=== PATIENT | male | born 1955 | race Caucasian/White ===

== ENCOUNTER 2018-03-01 20:35 | Inpatient (IN) | payer OTHER ==
[~2018-03-01] VITALS: Ht 193 cm; Wt 113.4 kg
[~2018-03-01 20:35] MED LIST: ALLOPURINOL100 MG PO; ATENOLOL25 MG PO; HYDROCHLOROTHIA25 MG PO; LISINOPRIL10 MG PO
[2018-03-01] MEDS ORDERED: MORPHINE SULFATE INJ 4 MG/ML INJ IV STA (20:43)
[2018-03-01] MEDS ORDERED: ONDANSETRON HCL INJ 2 MG/ML VIAL IV STA (20:43)
[2018-03-01] MEDS ORDERED: SODIUM CHLORIDE 0.9% 1000ML 1,000 ML IV STA (20:43)
[2018-03-01] MEDS ORDERED: MORPHINE SULFATE 2 MG/ML SYR ONE (20:49)
[2018-03-01] MEDS ORDERED: KETOROLAC TROMETHAMINE 30 MG/ML VIAL IV STA (21:01)
[2018-03-01] MEDS ORDERED: ZOLPIDEM TARTRAT5 MG PO (21:02)
[2018-03-01] MEDS ORDERED: METFORMIN HCL500 MG PO (21:02)
[2018-03-01] MEDS ORDERED: LISINOPRIL10 MG PO (21:02)
[2018-03-01 21:09] LABS: BASOPHILS # (AUTO) 0.1 (0.0-0.1); BASOPHILS % 0.5 % (0.0-1.0); EOSINOPHILS % 0.1 % (0.0-6.0); HEMATOCRIT 47.3 % (38.2-49.6); HEMOGLOBIN 16.1 g/dL (14.0-18.0); LYMPHOCYTES # (AUTO) 2.3 (1.0-3.2); MEAN CORPUSCULAR HEMOGLOBIN 31.3 pg (28-32); MEAN CORPUSCULAR VOLUME 91.8 fL (81-99); MONOCYTES # (AUTO) 1.2 (0.2-0.8); MONOCYTES % 9.5 % (4.4-11.3); NEUTROPHILS # (AUTO) 8.6 (2.1-6.9); NEUTROPHILS % 70.4 % (38.7-80.0); PLATELET COUNT 213 x10e3/uL (140-360); RED BLOOD COUNT 5.15 x10e6/uL (4.3-5.7); RED CELL DISTRIBUTION WIDTH 12.3 % (11.7-14.4)
[2018-03-01 21:23] LABS: BACTERIA,URINE RARE /HPF; BILIRUBIN,URINE NEGATIVE (NEGATIVE); CLARITY,URINE CLEAR (CLEAR); COLOR,URINE YELLOW (YELLOW); EPITHELIAL CELLS,URINE RARE /LPF; KETONES,URINE NEGATIVE (NEGATIVE); LEUKOCYTE ESTERASE ,URINE NEGATIVE (NEGATIVE); NITRITE,URINE NEGATIVE (NEGATIVE); PROTEIN,URINE DIPSTICK NEGATIVE (NEGATIVE); URINE UROBILINOGEN 0.2 mg/dL (0.2 - 1)
[2018-03-01 21:36] LABS: ALBUMIN 4.6 g/dL (3.5-5.0); ALBUMIN/GLOBULIN RATIO 1.5 (0.8-2.0); ANION GAP 16.7 mmol/L (8-16); CREATININE, SERUM 1.96 mg/dL (0.72-1.25); POTASSIUM 3.7 mmol/L (3.5-5.1)
--- NOTE | 2018-03-01 21:52 | Diagnostic Imaging Report ---
EXAM: CT ABDOMEN/PELVIS WO DATE: 03/01/2018 8:43 PM INDICATION: Stone protocol, pain COMPARISON: 03/06/2013 TECHNIQUE: The abdomen and pelvis were scanned using a multidetector helical scanner. Coronal and sagittal reformations were obtained. Routine protocol performed. IV Contrast: 0 ml Isovue 300/370 FINDINGS: Lack of IV contrast decreases sensitivity in evaluating abdominal and pelvic organs. LOWER THORAX: Left basilar atelectasis LIVER/BILIARY: Hepatic steatosis. Otherwise unremarkable noncontrast appearance. GALLBLADDER: Unremarkable SPLEEN: No splenomegaly. Calcified granulomas. PANCREAS: Unremarkable ADRENALS: No nodules KIDNEYS: There are several benign-appearing right renal cystic lesions, the largest inferiorly 3.2 cm. Multiple bilateral renal calculi. The largest on the right measures 3 and 5 mm of the right upper pole and 4 and 6 mm of the lower pole. The largest on the left measure 3 to 4 mm of the upper pole and 6-9 mm of the interpolar/lower pole regions. Mild left hydroureteronephrosis related to two mid ureteral calculi measuring 5 and 7 mm. GI TRACT: No wall thickening or evidence of obstruction. VESSELS: Moderate atherosclerotic calcifications. PERITONEUM/RETROPERITONEUM: No free air or fluid LYMPH NODES: No lymphadenopathy REPRODUCTIVE ORGANS/BLADDER: Unremarkable SOFT TISSUES: Small fat-containing left inguinal hernia. BONES: Multilevel degenerative changes are noted, worse at L5-S1. IMPRESSION: Mild left hydroureteronephrosis related to mid ureteral calculi measuring 5 and 7 mm. Nonobstructing bilateral nephrolithiasis. Signed by: Dr Casandra Boateng MD on 03/01/2018 9:48 PM
[2018-03-01] MEDS ORDERED: MEROPENEM 1GRAM 1 GM in SODIUM CHLORIDE 0.9% 100 ML 100 ML IV SCH (22:30)
[2018-03-01] MEDS ORDERED: ONDANSETRON HCL INJ 2 MG/ML VIAL IV PRN (22:45)
[2018-03-02] VITALS (9 sets, daily range): BP systolic 130–151; BP diastolic 60–72
[2018-03-02 00:36] LABS: CREATINE KINASE 186 IU/L (30-200)
[2018-03-02] MEDS: SODIUM CHLORIDE 0.9% 1000ML 1,000 ML IV SCH ×4 (02:35→23:42)
[2018-03-02] MEDS: HYDROMORPHONE 1MG/1ML INJ IV PRN (05:47)
[2018-03-02] MEDS ORDERED: MEROPENEM 1 GM VIAL ONE (07:07)
[2018-03-02 09:32] LABS: BASOPHILS % 0.4 % (0.0-1.0); HEMATOCRIT 41.1 % (38.2-49.6); HEMOGLOBIN 14.9 g/dL (14.0-18.0); LYMPHOCYTES # (AUTO) 1.3 (1.0-3.2); LYMPHOCYTES % 16.4 % (18.0-39.1); MEAN CORPUSCULAR HEMOGLOBIN 31.8 pg (28-32); MEAN CORPUSCULAR HGB CONC 36.3 g/dL (31-35); MEAN CORPUSCULAR VOLUME 87.8 fL (81-99); MONOCYTES # (AUTO) 0.9 (0.2-0.8); NEUTROPHILS # (AUTO) 5.6 (2.1-6.9); NEUTROPHILS % 71.8 % (38.7-80.0); PLATELET COUNT 159 x10e3/uL (140-360); RED BLOOD COUNT 4.68 x10e6/uL (4.3-5.7)
[2018-03-02 09:58] LABS: ALBUMIN 3.8 g/dL (3.5-5.0); ALBUMIN/GLOBULIN RATIO 1.5 (0.8-2.0); CALCIUM 8.8 mg/dL (8.4-10.2); CREATININE, SERUM 2.13 mg/dL (0.72-1.25)
[2018-03-02 10:28] LABS: CREATINE KINASE MB 2.9 ng/mL (0-5.0)
[2018-03-02] MEDS: MEROPENEM 1GM 100 ML IV SCH ×2 (11:00→23:10)
[2018-03-02] MEDS ORDERED: DEXTROSE 50% SYRINGE 50 ML IV PRN ×2 (11:15)
[2018-03-02] MEDS: ATENOLOL 50 MG TAB PO SCH (12:15)
[2018-03-02] MEDS: LISINOPRIL 10 MG TAB PO SCH (12:15)
[2018-03-02] MEDS: ALLOPURINOL 300 MG TAB PO SCH (12:15)
[2018-03-02] MEDS: INSULIN REGULAR, HUMAN 100 UNIT/1 ML 3ML VIAL SQ SCH ×2 (16:30→19:53)
--- NOTE | 2018-03-02 18:18 | History and Physical ---
HISTORY OF PRESENT ILLNESS: A 62-year-old male with past medical history positive for hypertension, diet-controlled diabetes, history of recurrent kidney stones who came back in with left flank pain. He was found to have a kidney stone with left hydronephrosis. REVIEW OF SYSTEMS: CARDIOVASCULAR: No chest pain or palpitation. RESPIRATORY: No shortness of breath. No cough. GASTROINTESTINAL: No nausea. No vomiting or diarrhea. GENITOURINARY: He has left flank pain. SOCIAL HISTORY: He does not smoke and does not drink. PAST MEDICAL HISTORY: Positive for hypertension and diet-controlled diabetes and recurrent kidney stones. PHYSICAL EXAMINATION VITAL SIGNS: Blood pressure 147/72, temperature 98.6, heart rate 66 per minute, respiratory rate 18 per minute. Oxygen saturation 95%. On the BMP sodium 139, potassium 4.0, chloride 106. CO2 24. BUN 33. Creatinine 2.13. Glucose 110. On the CBC white blood count 7.73, hemoglobin 14.9, hematocrit 41.1, platelet count 159,000. AST 16, ALT 20. Total bilirubin 2.1, alkaline phosphatase 54. PHYSICAL EXAMINATION: ABDOMEN: Showed evidence of left kidney stone with hydronephrosis. UA urine culture has been sent. CT of the abdomen showed evidence of left kidney stone with hydronephrosis. Urine culture has been sent. FINAL IMPRESSION 1. Left kidney stone with hydronephrosis. 2. Uncontrolled hypertension. 3. Diet-controlled diabetes mellitus type 2. PLAN OF TREATMENT: Continue IV fluids at 100 normal saline 150 mL an hour. Dilaudid 1 mg IV q.4 h. as needed. Meropenem 500 mg IV twice a day. Zofran 4 mg IV q.4 h. Lisinopril 20 mg daily. Atenolol 50 mg daily. Allopurinol 300 mg daily. Ambien 5 mg at night p.r.n. for sleep, hydrochlorothiazide is going to be discontinued because of renal failure and we are going to discontinue the metformin. Going to order a BMP and CBC tomorrow. Dr. Washburn, urology, has been seeing the patient and he is going to do a cystoscopy and retrograde tomorrow. Time Spent: About 45 minutes with the patient. Job#: [id number]
[2018-03-02] MEDS ORDERED: METFORMIN HCL 500 MG TAB PO SCH (21:00)
[2018-03-02] MEDS: ZOLPIDEM TARTRATE 5 MG TAB PO SCH (23:42)
[2018-03-03] VITALS (7 sets, daily range): BP systolic 131–161; BP diastolic 63–78
[2018-03-03] MEDS: SODIUM CHLORIDE 0.9% 1000ML 1,000 ML IV SCH ×3 (06:00→23:50)
[2018-03-03 07:02] LABS: BASOPHILS # (AUTO) 0.1 (0.0-0.1); BASOPHILS % 0.8 % (0.0-1.0); HEMATOCRIT 37.4 % (38.2-49.6); HEMOGLOBIN 13.3 g/dL (14.0-18.0); LYMPHOCYTES # (AUTO) 1.6 (1.0-3.2); LYMPHOCYTES % 24.8 % (18.0-39.1); MEAN CORPUSCULAR HEMOGLOBIN 31.3 pg (28-32); MEAN CORPUSCULAR HGB CONC 35.6 g/dL (31-35); MONOCYTES # (AUTO) 0.8 (0.2-0.8); MONOCYTES % 11.6 % (4.4-11.3); NEUTROPHILS # (AUTO) 4.1 (2.1-6.9); NEUTROPHILS % 62.6 % (38.7-80.0); PLATELET COUNT 134 x10e3/uL (140-360); RED BLOOD COUNT 4.25 x10e6/uL (4.3-5.7)
[2018-03-03 07:25] LABS: ALANINE AMINOTRANSFERASE 16 IU/L (0-55); ALBUMIN 3.3 g/dL (3.5-5.0); ALBUMIN/GLOBULIN RATIO 1.4 (0.8-2.0); ALKALINE PHOSPHATASE 45 IU/L (40-150); ANION GAP 11.1 mmol/L (8-16); BLOOD UREA NITROGEN 23 mg/dL (7-26); BUN/CREATININE RATIO 22 (6-25); CALCIUM 8.6 mg/dL (8.4-10.2); CARBON DIOXIDE 24 mmol/L (22-29); CHLORIDE 109 mmol/L (98-107); CREATININE, SERUM 1.06 mg/dL (0.72-1.25); EST GLOMERULAR FILTRATION RATE > 60 ML/MIN (60-); GLUCOSE 115 mg/dL (74-118); POTASSIUM 4.1 mmol/L (3.5-5.1); SODIUM 140 mmol/L (136-145)
[2018-03-03] MEDS: INSULIN REGULAR, HUMAN 100 UNIT/1 ML 3ML VIAL SQ SCH ×5 (07:30→20:26)
[2018-03-03] MEDS ORDERED: HYDROCHLOROTHIAZIDE 25 MG TAB PO SCH (09:00)
[2018-03-03] MEDS ORDERED: IOPAMIDOL 610MG/1ML 300 MG/ML VIAL IV ONE (09:09)
[2018-03-03] MEDS ORDERED: BELLADONNA/OPIUM 30 MG SUPP RC ONE (09:09)
[2018-03-03] MEDS: MEROPENEM 1GM 100 ML IV SCH ×2 (11:09→23:00)
[2018-03-03] MEDS ORDERED: FENTANYL CITRATE/PF 100MCG/2 ML INJ ONE ×2 (14:18→14:51)
[2018-03-03] MEDS ORDERED: MORPHINE SULFATE INJ 10 MG/ML ONE (14:38)
[2018-03-03] MEDS ORDERED: DEXTROSE 50% SYRINGE 50 ML IV PRN (14:45)
[2018-03-03] MEDS ORDERED: MIDAZOLAM HCL 2 MG/2 ML VIAL ONE (14:51)
[2018-03-03] MEDS: ALLOPURINOL 300 MG TAB PO SCH (16:04)
[2018-03-03] MEDS: LISINOPRIL 10 MG TAB PO SCH (16:04)
[2018-03-03] MEDS: ATENOLOL 50 MG TAB PO SCH (16:04)
[2018-03-03] MEDS ORDERED: INSULIN LISPRO 100 UNIT/1 ML 3ML VIAL SQ SCH (16:30)
[2018-03-03] MEDS ORDERED: DEXAMETHASONE SOD PHOS INJ 4 MG/ML VIAL ONE (17:53)
[2018-03-03] MEDS ORDERED: KETOROLAC TROMETHAMINE 30 MG/ML VIAL ONE (17:53)
[2018-03-03] MEDS ORDERED: PROPOFOL IV EMULSION 10 MG/ML 20 ML VIAL ONE (17:53)
[2018-03-03] MEDS ORDERED: GLYCOPYRROLATE INJ 1MG/ 5 ML SYR ONE (17:53)
[2018-03-03] MEDS ORDERED: LIDOCAINE HCL 2% LOCAL INJ 5 ML SDV VIAL INJ ONE (17:53)
[2018-03-03] MEDS ORDERED: SEVOFLURANE INHAL SOLN 250 ML PEN BTL ONE (17:53)
[2018-03-03] MEDS ORDERED: ONDANSETRON HCL INJ 2 MG/ML VIAL ONE (17:53)
--- NOTE | 2018-03-03 18:35 | Diagnostic Imaging Report ---
PROCEDURE:X-RAY ABDOMEN - KUB COMPARISON:Retrograde pyelogram 03/03/18 CT abdomen/pelvis 03/01/18 INDICATIONS:S/P STENT PLACEMENT FINDINGS: Medical devices: Left ureteral stent extends into the pelvis and inferior to the pubic symphysis, possibly into the prostatic urethra. Bowel gas pattern: Unremarkable. Calcifications. Multiple calcifications over the renal shadows, largest concentration over the left renal shadow measuring up to 16 mm. Calcifications over the right renal shadow measure up to 9 mm. No calcifications along the course of the stent. Organomegaly: None. Free air: None. Osseous structures: Left lateral osteophytic lipping at L4-5. CONCLUSION: Left ureteral stent appears to extend inferior to the bladder into the prostatic urethra. Bilateral intrarenal calculi as described above. Dictated by: Rachel Walker M.D. on 03/03/2018 at 18:39 Electronically approved by: Rachel Walker M.D. on 03/03/2018 at 18:39
[2018-03-03] MEDS ORDERED: CLONIDINE HCL 0.1 MG TAB PO PRN (19:15)
--- NOTE | 2018-03-03 19:39 | Progress Note ---
DATE: March 03, 2018 INTERNAL MEDICINE PROGRESS NOTE SUBJECTIVE: The patient had a stent placed by Dr. Washburn. He is having urinary incontinence and burning after that. OBJECTIVE VITAL SIGNS: Blood pressure is 161/72. Temperature 97.6, heart rate 67 per minute. Respiratory rate 20 per minute. Oxygen saturation 97%. ABDOMEN: Nondistended. EXTREMITIES: Show no evidence of cyanosis, edema or trauma. BMP shows sodium 140, potassium 4.1, chloride 109. CO2 24. BUN 23, creatinine 1.06. Glucose 115. On the CBC white blood count 6.56, hemoglobin 13.3, hematocrit 37.4, platelet count 134,000. AST 1 and ALT 16. Total bilirubin 1.2, alkaline phosphatase of 45. FINAL IMPRESSION: 1. Left kidney stone with hydronephrosis, status post stent placement. 2. Hypertension. 3. Diabetes mellitus type 2 with chronic renal failure. 4. Acute on chronic renal failure. PLAN OF TREATMENT: Continue meropenem 500 mg IV piggyback twice a day. Normal saline 150 mL an hour. Dilaudid 1 mg IV q.4 h. as needed. Zofran 4 mg IV q.4 h. as needed. IV push as needed. Allopurinol 300 mg daily. Ambien 5 mg at night p.r.n. for sleep. Atenolol 50 mg daily. Lisinopril 20 mg daily. We are going to start Pyridium also [address] Washburn, urologist, is following the case. Job#: [id number]
[2018-03-03] MEDS: PHENAZOPYRIDINE HCL 100 MG TAB PO SCH (21:37)
[2018-03-03] MEDS: HYDROMORPHONE 1MG/1ML INJ IV PRN (21:43)
[2018-03-03] MEDS: ZOLPIDEM TARTRATE 5 MG TAB PO SCH (23:30)
[2018-03-04] VITALS: BP 153/74
[2018-03-04 04:00] VITALS: BP 139/63
[2018-03-04] MEDS: PHENAZOPYRIDINE HCL 100 MG TAB PO SCH ×2 (05:22→14:38)
[2018-03-04 07:09] LABS: ANION GAP 13.2 mmol/L (8-16); BLOOD UREA NITROGEN 20 mg/dL (7-26); BUN/CREATININE RATIO 22 (6-25); CALCIUM 8.6 mg/dL (8.4-10.2); CARBON DIOXIDE 21 mmol/L (22-29); CHLORIDE 109 mmol/L (98-107); CREATININE, SERUM 0.89 mg/dL (0.72-1.25); EST GLOMERULAR FILTRATION RATE > 60 ML/MIN (60-); GLUCOSE 135 mg/dL (74-118); POTASSIUM 4.2 mmol/L (3.5-5.1); SODIUM 139 mmol/L (136-145)
[2018-03-04 07:15] VITALS: BP 126/68
[2018-03-04] MEDS: INSULIN REGULAR, HUMAN 100 UNIT/1 ML 3ML VIAL SQ SCH ×3 (07:30→16:30)
[2018-03-04 07:52] VITALS: BP 126/68
[2018-03-04] MEDS ORDERED: IOPAMIDOL 610MG/1ML 300 MG/ML VIAL IV ONE (08:42)
[2018-03-04] MEDS ORDERED: LIDOCAINE HCL 2% 30 ML TUBE ONE (10:04)
[2018-03-04 12:38] VITALS: BP 152/72
[2018-03-04] MEDS ORDERED: MEROPENEM 1 GM VIAL IV SCH (13:00)
[2018-03-04] MEDS: LISINOPRIL 10 MG TAB PO SCH (13:20)
[2018-03-04] MEDS: ATENOLOL 50 MG TAB PO SCH (13:20)
[2018-03-04] MEDS: ALLOPURINOL 300 MG TAB PO SCH (13:20)
[2018-03-04] MEDS: HYDROMORPHONE 1MG/1ML INJ IV PRN (15:45)
[2018-03-04 15:49] VITALS: BP 145/74
[2018-03-04] MEDS ORDERED: FENTANYL CITRATE/PF 100MCG/2 ML INJ ONE (16:21)
[2018-03-04] MEDS ORDERED: MIDAZOLAM HCL 2 MG/2 ML VIAL ONE (16:21)
--- NOTE | 2018-03-04 16:35 | Discharge Summary ---
Patient is a 62-year-old male with past medical history positive for hypertension. He was admitted with a kidney stone. Stent was placed by Dr. Washburn. Patient is going to be discharged home today. PHYSICAL EXAMINATION ABDOMEN: Soft. No tension or distention. No visceromegaly. FINAL IMPRESSIONS 1. Kidney stone status post stent placement by Dr. Washburn which is located on the left side of the kidney with hydronephrosis. 2. Hypertension. 3. Diabetes mellitus type 2 with chronic renal insufficiency. 4. [id number] renal insufficiency stage 3. PLAN: The patient is going home today, has been discharged by Dr. Washburn conflicts analyst. RAGHAVENDRA VASQUEZ MD Job#: [id number] DG
--- NOTE | 2018-03-04 16:42 | Discharge Summary ---
ADDENDUM TO DISCHARGE SUMMARY The rest of the medications on discharge are going to be: 1. Allopurinol 300 mg daily. 2. Atenolol 50 mg daily. 3. Lisinopril 20 mg daily. 4. Pyridium 100 mg q.8 h. as needed for burning urination. 5. Zofran 4 mg at night p.r.n. for sleep. 6. Antibiotic and pain medications have been prescribed by Dr. Washburn, urologist. He is supposed to follow with urology, Dr. Washburn, as an outpatient. The temperature is 97.7. Heart rate 52 per minute, respiratory rate is 20 per minute, blood pressure 145/74. Oxygen saturation 97% on room air. Urine culture is completely negative. The last blood work shows a white blood count of 6.56, hemoglobin 13.3, hematocrit 37.4, platelet count 134,000. On the chemistry, we have BMP with sodium 139, potassium 4.2, chloride 109, CO2 21, BUN 20, creatinine 0.89, glucose 135. Last blood sugar was 108. Calcium 8.6. The last KUB showed a left ureteral stent appears to extend inferior to the bladder into the prostatic urethra. Bilateral interrenal calculi as described above. As I said, the patient has been discharged by Dr. Washburn, urologist. Patient had fluoroscopic test done also today, and we do not have the report. The patient is going to be discharged home and will follow up with Dr. Washburn as an outpatient. RAGHAVENDRA VASQUEZ MD Job#: [id number]
[2018-03-04] MEDS ORDERED: OXYBUTYNIN CHLORIDE XL 5 MG TAB PO ONE (17:20)
[2018-03-04] MEDS ORDERED: PROPOFOL IV EMULSION 10 MG/ML 20 ML VIAL ONE (17:49)
[2018-03-04] MEDS ORDERED: LIDOCAINE HCL 2% LOCAL INJ 5 ML SDV VIAL INJ ONE (17:49)
--- NOTE | 2018-03-13 17:22 | Operative Report ---
DATE OF PROCEDURE: March 04, 2018 PREOPERATIVE DIAGNOSIS: Malposition of left ureteral stent. POSTOPERATIVE DIAGNOSIS: Malposition of left ureteral stent. OPERATIVE PROCEDURES 1. Cystoscopy. 1. Replacement of left ureteral stent. ANESTHESIA: MAC anesthesia. ESTIMATED BLOOD LOSS: Minimal. INDICATIONS: Mr. Jared Walker is a 62-year-old gentleman who previously underwent a left ureteroscopy with laser lithotripsy and stent placement. He initially did well and then had inadvertent partial removal of the stent causing continued incontinence. He now presents for stent replacement. PROCEDURE IN DETAIL: The patient was brought into the operating room and placed in supine position, and after administration of IV anesthesia was placed in the dorsal lithotomy and prepped and draped in the usual sterile fashion. Cystourethroscopy was performed using a 21-Greek cystoscope. The anterior and posterior urethra was noted to be normal. In the proximal bulbar urethra, the stent was visualized with a string exiting it. Entrance into the bladder was mildly obstructed but otherwise unremarkable. The stent was grasped in its location and removed in its entirety. A 0.035 wire was then placed up into the left renal pelvis under fluoroscopic guidance, and a 6-Greek stent replaced such that one coil was in the renal pelvis and a subsequent coil was in the bladder. The string was then cut short so as to prevent inadvertent removal of the string again. The string was left in the distal urethra. A KUB revealed the stent to be in good anatomical position. The bladder was drained in its entirety, and the patient was returned to a supine position. Anesthesia was reversed, and he was transferred to a bed and taken to the postanesthesia care unit in good condition. Of note, the needle and instrument count was correct at the conclusion of the case. Job#: [id number]
--- NOTE | 2018-03-13 17:27 | Operative Report ---
DATE OF PROCEDURE: March 03, 2018 PREOPERATIVE DIAGNOSIS: Left ureteral stones with hydronephrosis. POSTOPERATIVE DIAGNOSIS: Left ureteral stones with hydronephrosis. PROCEDURES PERFORMED: 1. Cystoscopy. 2. Left retrograde pyelogram. 3. Left ureteroscopy with laser lithotripsy. 4. Placement of left ureteral stent. ANESTHESIA: General. ESTIMATED BLOOD LOSS: Minimal. INDICATIONS: Mr. Jared Walker is a 62-year-old gentleman who came to the hospital with left flank pain, nausea and vomiting. He was found by CAT scan to have 2 mid ureteral stones, one 5 mm and one 9 mm in diameter. He now presents for management of these problems. PROCEDURE IN DETAIL: Patient brought into the operating room and placed in the supine position and after the administration of general anesthesia was placed in the dorsal lithotomy position and prepped and draped in usual sterile fashion. Cystourethroscopy was performed using 21-Guamanian cystoscope. Anterior and posterior regions were noted to be normal. The prostate revealed mild increase in size of his lateral lobes, but the bladder was entered without difficulty. Upon entrance into the bladder, the ureteral orifices were in normal anatomical position and produced clear efflux. There were no mucosal lesions identified. Using a cone-tip catheter, left retrograde pyelogram was performed. This revealed 2 stones, both approximately a centimeter in diameter in the proximal ureter on the left side. There was moderate hydronephrosis noted behind this. Under fluoroscopic guidance, a wire was placed atraumatically into the left renal pelvis and a 12/14 ureteral access sheath was then placed. Flexible ureteroscopy was then performed. The visualized portion of the ureter was normal. The stones were noted to flow back up into the renal pelvis and middle pole ralph. In this position, with of the stones were pulverized using the Holmium laser. There were multiple small fragments noted at the conclusion of the case. The decision was made to leave a stent to ensure resolution of hydronephrosis as well as stone passage. A 6-Guamanian 30 cm stent was then placed and one coil was in the renal pelvis and a were closed in the bladder. The string was allowed to exit the urethral meatus. The patient was returned to supine position and anesthesia was reversed. He was transferred to a bed and taken to the postanesthesia care unit in good condition. Of note, the needles and instrument counts were correct at the conclusion of the case. Job#: [id number] SHAWN
== END 2018-03-04 17:14 | disposition home or self-care (01) | DRG 694 ==
LOC: ER 20:35 → ERHOLD 22:48 → MED/SURG3 03-02 00:10
PROVIDERS: ADMIT Internal Medicine; ATTEND Internal Medicine
PROC: 0T778DZ Dilation of Left Ureter with Intraluminal Device, Via Natural or Artificial Opening Endoscopic (ICD-10-PCS; 2018-03-03)
PROC: BT1F1ZZ Fluoroscopy of Left Kidney, Ureter and Bladder using Low Osmolar Contrast (ICD-10-PCS; 2018-03-03)
PROC: 0TF78ZZ Fragmentation in Left Ureter, Via Natural or Artificial Opening Endoscopic (ICD-10-PCS; principal; 2018-03-03 09:30)
PROC: 0TP98DZ Removal of Intraluminal Device from Ureter, Via Natural or Artificial Opening Endoscopic (ICD-10-PCS; 2018-03-04)
PROC: 0T778DZ Dilation of Left Ureter with Intraluminal Device, Via Natural or Artificial Opening Endoscopic (ICD-10-PCS; 2018-03-04)
DX: N13.2 Hydronephrosis with renal and ureteral calculous obstruction (principal); T83.122A Displacement of indwelling ureteral stent, initial encounter; E11.22 Type 2 diabetes mellitus with diabetic chronic kidney disease; I12.9 Hypertensive chronic kidney disease with stage 1 through stage 4 chronic kidney disease, or unspecified chronic kidney disease; N18.3 Chronic kidney disease, stage 3 (moderate); N17.9 Acute kidney failure, unspecified; Z79.84 Long term (current) use of oral hypoglycemic drugs; J44.9 Chronic obstructive pulmonary disease, unspecified; G40.909 Epilepsy, unspecified, not intractable, without status epilepticus; Z86.73 Personal history of transient ischemic attack (TIA), and cerebral infarction without residual deficits; Y83.1 Surgical operation with implant of artificial internal device as the cause of abnormal reaction of the patient, or of later complication, without mention of misadventure at the time of the procedure; Y92.230 Patient room in hospital as the place of occurrence of the external cause
CPT/HCPCS: 36415; 74018; 74176; 74420; 76000; 80048; 80053; 81001; 82550; 82553; 82948; 84484; 85025; 87086; 96361; 99284; C1766; C2617; J1100; J1170; J1885; J2001; J2185; J2250; J2270; J2405; J7030

== ENCOUNTER → 2018-03-11 | Outpatient (CLI) | payer OTHER ==
[~2018-03-11] MED LIST changes: +METFORMIN HCL500 MG PO; +ZOLPIDEM TARTRAT5 MG PO
--- NOTE | 2018-03-11 15:09 | Diagnostic Imaging Report ---
PROCEDURE:X-RAY ABDOMEN - KUB COMPARISON:Retrograde pyelogram 03/04/2018, KUB 03/03/2018. INDICATIONS:CALCULUS OF KIDNEY/LEFT SIDE STENT FINDINGS: Interval exchange of left internal ureteral stent. The proximal locking loop is uncurled and lies within the upper pole collecting system. The distal locking loop is partially uncurled and projects over the expected region of the bladder base. Bilateral renal calculi are again noted, measuring up to 8 mm projecting over the right upper pole and 1.4 cm projecting over the left lower pole. A cluster of calcifications measuring 1.8 cm in maximum dimension lies along side the distal aspect of the stent. Bowel gas pattern is nonobstructive. Regional skeletal structures are intact. CONCLUSION: Interval left-sided lithotripsy and exchange of left internal ureteral stent. The distal locking loop projects over the expected region of the bladder base and is partially unformed. Cluster of small calculi lies along the distal aspect of the stent, at the expected region of the ureterovesical junction. Additional bilateral renal calculi as above. Dictated by: Zhao Grace M.D. on 03/11/2018 at 11:52 Electronically approved by: Zhao Grace M.D. on 03/11/2018 at 11:52
== END ==
LOC: RAD 10:57
PROVIDERS: ATTEND Urology
DX: N20.0 Calculus of kidney (principal)
CPT/HCPCS: 74018

== ENCOUNTER 2020-08-24 06:50 | Emergency (ER) | payer MEDICARE, BC ==
[~2020-08-24] VITALS: Ht 193 cm; Wt 113.4 kg
[2020-08-24] MEDS ORDERED: DIAZEPAM 5 MG TAB PO ONE (07:00)
[2020-08-24] MEDS ORDERED: KETOROLAC TROMETHAMINE 30 MG/ML VIAL IM ONE (07:00)
[2020-08-24] MEDS ORDERED: KETOROLAC TROMETHAMINE 30 MG/ML VIAL ONE (07:16)
[2020-08-24 08:37] VITALS: BP 134/81
== END 2020-08-24 08:46 | disposition home or self-care (01) ==
LOC: ER 07:11
DX: S23.3XXA Sprain of ligaments of thoracic spine, initial encounter (principal); S20.224A Contusion of middle back wall of thorax, initial encounter; S00.83XA Contusion of other part of head, initial encounter; M25.512 Pain in left shoulder; W01.0XXA Fall on same level from slipping, tripping and stumbling without subsequent striking against object, initial encounter; Y93.19 Activity, other involving water and watercraft; Y92.828 Other wilderness area as the place of occurrence of the external cause; I10 Essential (primary) hypertension; E11.9 Type 2 diabetes mellitus without complications
CPT/HCPCS: 70450; 71045; 72125; 72128; 73030; 99284; J1885

== ENCOUNTER → 2021-01-26 | Day surgery (SDC) | payer MEDICARE, BC ==
[2021-01-24 11:43] LABS: BASOPHILS # (AUTO) 0.1 (0.0-0.1); BASOPHILS % 0.8 % (0.0-1.0); EOSINOPHILS % 15.8 % (0.0-6.0); HEMATOCRIT 41.5 % (38.2-49.6); HEMOGLOBIN 14.6 g/dL (14.0-18.0); LYMPHOCYTES # (AUTO) 1.8 (1.0-3.2); LYMPHOCYTES % 27.7 % (18.0-39.1); MEAN CORPUSCULAR HEMOGLOBIN 31.5 pg (28-32); MEAN CORPUSCULAR HGB CONC 35.2 g/dL (31-35); MEAN CORPUSCULAR VOLUME 89.4 fL (81-99); MONOCYTES # (AUTO) 0.6 (0.2-0.8); MONOCYTES % 9.5 % (4.4-11.3); NEUTROPHILS # (AUTO) 2.9 (2.1-6.9); NEUTROPHILS % 45.9 % (38.7-80.0); PLATELET COUNT 168 x10e3/uL (140-360); RED BLOOD COUNT 4.64 x10e6/uL (4.3-5.7); RED CELL DISTRIBUTION WIDTH 12.2 % (11.7-14.4)
[2021-01-24 12:06] LABS: ANION GAP 16.1 mmol/L (8-16); CALCIUM 9.4 mg/dL (8.4-10.2); CREATININE, SERUM 1.22 mg/dL (0.72-1.25); POTASSIUM 4.1 mmol/L (3.5-5.1)
[~2021-01-26] MED LIST changes: +BUPIVACAINE HCL 0.5% INJ 30 ML VIAL INJ ONE; +FENTANYL CITRATE/PF 100MCG/2 ML INJ ONE; +LIDOCAINE HCL 2% LOCAL INJ 5 ML SDV VIAL INJ ONE; +METOPROLOL SUCC50 MG PO; +MUPIROCIN 2% OINT 22 GM TUBE ONE; +ONDANSETRON HCL INJ 2MG/ML 2ML 2 MG/ML VIAL ONE; +POVIDONE IODINE 0.05% 0.05 % ML PO ONE; +PROPOFOL IV EMULSION 10 MG/ML 20 ML VIAL ONE; +SEVOFLURANE INHAL SOLN 250 ML PEN BTL ONE; +TYLENOL # 31 EA PO
[2021-01-26 09:00] VITALS: BP 140/70
== END | disposition home or self-care (01) ==
LOC: OR 05:55 → EDSTATUS 07:00
PROVIDERS: ATTEND Plastic Surgery
DX: M65.342 Trigger finger, left ring finger (principal); I10 Essential (primary) hypertension; E11.9 Type 2 diabetes mellitus without complications; N20.0 Calculus of kidney; I44.0 Atrioventricular block, first degree; F41.9 Anxiety disorder, unspecified; Z01.810 Encounter for preprocedural cardiovascular examination; Z01.812 Encounter for preprocedural laboratory examination; Z01.818 Encounter for other preprocedural examination; Z20.822 Contact with and (suspected) exposure to COVID-19; Z79.84 Long term (current) use of oral hypoglycemic drugs
CPT/HCPCS: 26055; 36415 ×2; 71046; 80048; 82948; 85025; 93005; J2001; J2405; J2704; J3010; U0002

== ENCOUNTER → 2021-02-08 | Day surgery (SDC) | payer MEDICARE, BC ==
[~2021-02-08] MED LIST changes: +ATENOLOL50 MG PO; -BUPIVACAINE HCL 0.5% INJ 30 ML VIAL INJ ONE; -FENTANYL CITRATE/PF 100MCG/2 ML INJ ONE; +HYOSCYAMINE SULFATE 0.5 MG/ML INJ ONE; +INSULIN REGULAR, HUMAN 100 UNIT/1 ML 3ML VIAL ONE; -MUPIROCIN 2% OINT 22 GM TUBE ONE; -ONDANSETRON HCL INJ 2MG/ML 2ML 2 MG/ML VIAL ONE; -POVIDONE IODINE 0.05% 0.05 % ML PO ONE; -SEVOFLURANE INHAL SOLN 250 ML PEN BTL ONE
[2021-02-08 11:16] VITALS: BP 136/83
== END | disposition home or self-care (01) ==
LOC: OR 05:36
PROVIDERS: ATTEND Internal Medicine Gastroenterology
DX: Z12.11 Encounter for screening for malignant neoplasm of colon (principal); D12.8 Benign neoplasm of rectum; K57.30 Diverticulosis of large intestine without perforation or abscess without bleeding; K64.8 Other hemorrhoids; R19.5 Other fecal abnormalities; E11.9 Type 2 diabetes mellitus without complications; I10 Essential (primary) hypertension; Z01.812 Encounter for preprocedural laboratory examination; Z20.822 Contact with and (suspected) exposure to COVID-19; Z79.84 Long term (current) use of oral hypoglycemic drugs; Z80.0 Family history of malignant neoplasm of digestive organs
CPT/HCPCS: 36415; 45380; 45385; 82948; 88305; J1980; J2001; J2704; U0002; 45378; J1817

== ENCOUNTER 2021-10-23 10:11 | Emergency (ER) | payer MEDICARE, BC ==
[~2021-10-23] VITALS: Ht 193 cm; Wt 113.4 kg
[~2021-10-23 10:11] MED LIST changes: -HYOSCYAMINE SULFATE 0.5 MG/ML INJ ONE; -INSULIN REGULAR, HUMAN 100 UNIT/1 ML 3ML VIAL ONE; -LIDOCAINE HCL 2% LOCAL INJ 5 ML SDV VIAL INJ ONE; -PROPOFOL IV EMULSION 10 MG/ML 20 ML VIAL ONE
[2021-10-23] MEDS ORDERED: ONDANSETRON HCL INJ 2MG/ML 2ML 2 MG/ML VIAL IV STA (10:34)
[2021-10-23] MEDS ORDERED: KETOROLAC TROMETHAMINE 30 MG/ML VIAL IV STA (10:34)
[2021-10-23] MEDS ORDERED: SODIUM CHLORIDE 0.9% 1000ML 1,000 ML IV SCH (10:45)
[2021-10-23 10:55] LABS: BASOPHILS % 0.2 % (0.0-1.0); HEMATOCRIT 45.5 % (38.2-49.6); HEMOGLOBIN 15.6 g/dL (14.0-18.0); LYMPHOCYTES % 9.2 % (18.0-39.1); MEAN CORPUSCULAR HEMOGLOBIN 30.8 pg (28-32); MEAN CORPUSCULAR HGB CONC 34.3 g/dL (31-35); MEAN CORPUSCULAR VOLUME 89.9 fL (81-99); MONOCYTES # (AUTO) 0.8 (0.2-0.8); PLATELET COUNT 253 x10e3/uL (140-360); RED BLOOD COUNT 5.06 x10e6/uL (4.3-5.7); RED CELL DISTRIBUTION WIDTH 12.3 % (11.7-14.4)
[2021-10-23 11:11] LABS: ALBUMIN/GLOBULIN RATIO 1.1 (0.8-2.0); ANION GAP 14.5 mmol/L (8-16); CALCIUM 9.5 mg/dL (8.4-10.2); CREATININE, SERUM 1.91 mg/dL (0.72-1.25); POTASSIUM 3.5 mmol/L (3.5-5.1)
[2021-10-23 11:15] LABS: CLARITY,URINE CLEAR (CLEAR); COLOR,URINE YELLOW (YELLOW); KETONES,URINE NEGATIVE (NEGATIVE); LEUKOCYTE ESTERASE ,URINE MODERATE (NEGATIVE); NITRITE,URINE NEGATIVE (NEGATIVE); PROTEIN,URINE DIPSTICK NEGATIVE (NEGATIVE); URINE UROBILINOGEN 0.2 mg/dL (0.2 - 1)
[2021-10-23 11:19] LABS: BACTERIA,URINE FEW /HPF; EPITHELIAL CELLS,URINE FEW /LPF
[2021-10-23] MEDS ORDERED: FLOMAX0.4 MG PO (13:02)
[2021-10-23] MEDS ORDERED: KETOROLAC TROME10 MG PO (13:02)
[2021-10-23] MEDS ORDERED: CEPHALEXIN500 M1 PO (13:02)
[2021-10-23] MEDS ORDERED: ONDANSETRON ODT4 MG PO (13:02)
== END 2021-10-23 13:18 | disposition home or self-care (01) ==
LOC: ER 10:15
DX: R10.32 Left lower quadrant pain (principal); N13.2 Hydronephrosis with renal and ureteral calculous obstruction; N39.0 Urinary tract infection, site not specified; E11.65 Type 2 diabetes mellitus with hyperglycemia; I10 Essential (primary) hypertension
CPT/HCPCS: 36415; 74176; 80053; 81001; 85025; 87086; 99283; J1885; J2405; J7030

== ENCOUNTER → 2024-12-17 | Outpatient (REF) | payer MEDICARE, BC ==
[~2024-12-17] MED LIST changes: +CEPHALEXIN500 M1 PO; +FLOMAX0.4 MG PO; +KETOROLAC TROME10 MG PO; +ONDANSETRON ODT4 MG PO
== END ==
LOC: CT 14:30
PROVIDERS: ATTEND Family Medicine
DX: R93.5 Abnormal findings on diagnostic imaging of other abdominal regions, including retroperitoneum (principal); Z87.442 Personal history of urinary calculi
CPT/HCPCS: 74176

== ENCOUNTER → 2025-01-04 | Outpatient (REF) | payer MEDICARE, BC | LOC: MRI 14:43 | PROVIDERS: ATTEND Family Medicine | DX: M54.16 Radiculopathy, lumbar region (principal); M51.360 Other intervertebral disc degeneration, lumbar region with discogenic back pain only | CPT/HCPCS: 72148 ==

== ENCOUNTER → 2025-04-01 | Day surgery (SDC) | payer MEDICARE, BC ==
[~2025-04-01] MED LIST changes: +ACETAMINOPHEN 1000 MG/100 ML 100 ML IV ONE; +ALLOPURINOL300 MG PO; +EPHEDRINE SULFATE INJ 50 MG/ML VIAL ONE; +FAMOTIDINE 20 MG/2 ML VIAL IV ONE; +FENTANYL CITRATE/PF 100MCG/2 ML INJ ONE; +LIDOCAINE HCL 2% LOCAL INJ 5 ML SDV VIAL INJ ONE; +MIDAZOLAM HCL 2 MG/2 ML VIAL ONE; +MOUNJARO10 MG/0.5 PO; +MULTI-VITAMIN1 EACH PO; +NEURONTIN300 MG PO; +ONDANSETRON HCL INJ 2MG/ML 2ML 2 MG/ML VIAL ONE; +PROPOFOL IV EMULSION 10 MG/ML 20 ML VIAL ONE; +SEVOFLURANE INHAL SOLN 250 ML PEN BTL ONE
[2025-04-01 06:25] LABS: BASOPHILS % 1.0 % (0.0-1.0); EOSINOPHILS % 2.1 % (0.0-6.0); LYMPHOCYTES % 25.7 % (18.0-39.1); MONOCYTES % 10.9 % (4.4-11.3); NEUTROPHILS % 59.7 % (38.7-80.0); RED CELL DISTRIBUTION WIDTH 12.6 % (11.7-14.4)
[2025-04-01] MEDS: CEFTRIAXONE 1 GM VIAL ONE (06:30)
[2025-04-01] MEDS: SODIUM CHLORIDE 0.9% 1000ML 1,000 ML ONE (06:31)
[2025-04-01 06:47] LABS: EST GLOMERULAR FILTRATION RATE 58.0 ML/MIN (>=60)
[2025-04-01] MEDS: PHENAZOPYRIDINE HCL 100 MG TAB ONE (08:48)
[2025-04-01 09:40] VITALS: BP 159/86; PULSE 66; RESP 17; O2SAT 98
== END | disposition home or self-care (01) ==
LOC: OR 05:33
PROVIDERS: ATTEND Urology
DX: N13.2 Hydronephrosis with renal and ureteral calculous obstruction (principal); N35.919 Unspecified urethral stricture, male, unspecified site; N40.0 Benign prostatic hyperplasia without lower urinary tract symptoms; I10 Essential (primary) hypertension; E11.9 Type 2 diabetes mellitus without complications; Z87.442 Personal history of urinary calculi; Z79.85 Long-term (current) use of injectable non-insulin antidiabetic drugs; Z79.899 Other long term (current) drug therapy; Z01.810 Encounter for preprocedural cardiovascular examination; Z01.812 Encounter for preprocedural laboratory examination
CPT/HCPCS: 36415; 50590; 52332; 71046; 74018; 74420; 80053; 82948; 83970; 84550; 85025; 87086; 93005; C1758; C2617; J0131; J0696; J1308; J2003; J2250; J2405; J2704; J3010; J7030

== ENCOUNTER 2025-04-09 06:29 | Emergency (ER) | payer MEDICARE, BC ==
[~2025-04-09] VITALS: Ht 190.5 cm; Wt 101.6 kg
[~2025-04-09 06:29] MED LIST changes: -ACETAMINOPHEN 1000 MG/100 ML 100 ML IV ONE; -ALLOPURINOL300 MG PO; -EPHEDRINE SULFATE INJ 50 MG/ML VIAL ONE; -FAMOTIDINE 20 MG/2 ML VIAL IV ONE; -FENTANYL CITRATE/PF 100MCG/2 ML INJ ONE; -LIDOCAINE HCL 2% LOCAL INJ 5 ML SDV VIAL INJ ONE; -MIDAZOLAM HCL 2 MG/2 ML VIAL ONE; -MULTI-VITAMIN1 EACH PO; -NEURONTIN300 MG PO; -ONDANSETRON HCL INJ 2MG/ML 2ML 2 MG/ML VIAL ONE; -PROPOFOL IV EMULSION 10 MG/ML 20 ML VIAL ONE; -SEVOFLURANE INHAL SOLN 250 ML PEN BTL ONE
[2025-04-09] MEDS: DEXAMETHASONE 4 MG TAB PO STA (06:59)
[2025-04-09] MEDS: LIDOCAINE 4% PATCH TP STA (06:59)
[2025-04-09] MEDS: ACETAMINOPHEN 325 MG TAB PO ONE (06:59)
[2025-04-09] MEDS: KETOROLAC TROMETHAMINE 30 MG/ML VIAL IM STA (06:59)
[2025-04-09] MEDS: GABAPENTIN 300 MG CAP PO ONE (08:10)
[2025-04-09 09:00] VITALS: PULSE 61; RESP 12; TEMP 97.9; O2SAT 98
[2025-04-09] MEDS ORDERED: NEURONTIN300 MG PO (09:35)
[2025-04-15] MEDS ORDERED: MULTI-VITAMIN1 EACH PO (09:16)
[2025-04-16] MEDS ORDERED: ALLOPURINOL300 MG PO (06:18)
== END 2025-04-09 09:52 | disposition home or self-care (01) ==
LOC: ER 06:42
DX: M25.551 Pain in right hip (principal); I10 Essential (primary) hypertension; E11.9 Type 2 diabetes mellitus without complications; M13.88 Other specified arthritis, other site; Z87.442 Personal history of urinary calculi; M54.31 Sciatica, right side
CPT/HCPCS: 74176; 99284; J1885; J8540

== ENCOUNTER → 2025-04-16 | Day surgery (SDC) | payer MEDICARE, BC ==
[~2025-04-16] MED LIST changes: +ACETAMINOPHEN 1000 MG/100 ML 100 ML IV ONE; +ALLOPURINOL300 MG PO; +DEXAMETHASONE SOD PHOS INJ 4 MG/ML SDV ONE; +EPHEDRINE SULFATE INJ 50 MG/ML VIAL ONE; +FENTANYL CITRATE/PF 100MCG/2 ML INJ ONE; +LIDOCAINE HCL 2% LOCAL INJ 5 ML SDV VIAL INJ ONE; +MULTI-VITAMIN1 EACH PO; +NEURONTIN300 MG PO; +ONDANSETRON HCL INJ 2MG/ML 2ML 2 MG/ML VIAL ONE; +PROPOFOL IV EMULSION 10 MG/ML 20 ML VIAL ONE
[2025-04-16] MEDS: CEFTRIAXONE 1 GM VIAL ONE (06:20)
[2025-04-16] MEDS: SODIUM CHLORIDE 0.9% 1000ML 1,000 ML ONE (06:20)
[2025-04-16 06:53] LABS: BASOPHILS % 0.8 % (0.0-1.0); EOSINOPHILS % 0.0 % (0.0-6.0); LYMPHOCYTES % 29.6 % (18.0-39.1); MONOCYTES % 9.1 % (4.4-11.3); NEUTROPHILS % 60.1 % (38.7-80.0); RED CELL DISTRIBUTION WIDTH 11.9 % (11.7-14.4)
[2025-04-16 07:25] LABS: EST GLOMERULAR FILTRATION RATE 63.0 ML/MIN (>=60)
[2025-04-16 08:48] VITALS: TEMP 97.5
[2025-04-16 10:20] VITALS: BP 148/87; PULSE 60; RESP 18; O2SAT 97
== END | disposition home or self-care (01) ==
LOC: OR 05:36
PROVIDERS: ATTEND Urology
DX: N20.0 Calculus of kidney (principal); Z96.0 Presence of urogenital implants; I10 Essential (primary) hypertension; Z79.85 Long-term (current) use of injectable non-insulin antidiabetic drugs; Z79.899 Other long term (current) drug therapy
CPT/HCPCS: 36415; 50590; 74018; 80048; 84550; 85025; J0131; J0696; J1100; J2003; J2405; J2704; J3010; J7030

== ENCOUNTER → 2025-04-30 | Day surgery (SDC) | payer MEDICARE, BC ==
[~2025-04-30] MED LIST changes: -DEXAMETHASONE SOD PHOS INJ 4 MG/ML SDV ONE; +SEVOFLURANE INHAL SOLN 250 ML PEN BTL ONE
[2025-04-30 10:01] LABS: BASOPHILS % 0.7 % (0.0-1.0); EOSINOPHILS % 0.0 % (0.0-6.0); LYMPHOCYTES % 25.6 % (18.0-39.1); MONOCYTES % 14.3 % (4.4-11.3); NEUTROPHILS % 59.1 % (38.7-80.0); RED CELL DISTRIBUTION WIDTH 12.0 % (11.7-14.4)
[2025-04-30] MEDS: SODIUM CHLORIDE 0.9% 1000ML 1,000 ML ONE (10:22)
[2025-04-30] MEDS: CEFTRIAXONE 1 GM VIAL ONE (10:22)
[2025-04-30 10:28] LABS: EST GLOMERULAR FILTRATION RATE 68.0 ML/MIN (>=60)
[2025-04-30 13:00] VITALS: TEMP 97.2
[2025-04-30 13:30] VITALS: BP 149/77; PULSE 59; RESP 16; O2SAT 98
== END | disposition home or self-care (01) ==
LOC: OR 08:30
PROVIDERS: ATTEND Urology
DX: N20.0 Calculus of kidney (principal); N28.9 Disorder of kidney and ureter, unspecified; I10 Essential (primary) hypertension; E11.9 Type 2 diabetes mellitus without complications; H91.90 Unspecified hearing loss, unspecified ear; Z79.85 Long-term (current) use of injectable non-insulin antidiabetic drugs; Z79.899 Other long term (current) drug therapy
CPT/HCPCS: 36415; 50590; 80048; 82948; 84550; 85025; J0131; J0696; J2003; J2405; J2704; J3010; J7030

== ENCOUNTER → 2025-05-14 | Day surgery (SDC) | payer MEDICARE, BC ==
[2025-05-14] MEDS: CEFTRIAXONE 1 GM VIAL ONE (07:00)
[2025-05-14] MEDS: SODIUM CHLORIDE 0.9% 1000ML 1,000 ML ONE (07:01)
[2025-05-14 09:45] VITALS: BP 146/82; PULSE 71; RESP 18; O2SAT 98
== END | disposition home or self-care (01) ==
LOC: OR 06:34
PROVIDERS: ATTEND Urology
DX: N20.0 Calculus of kidney (principal); Z96.0 Presence of urogenital implants; E11.9 Type 2 diabetes mellitus without complications; I10 Essential (primary) hypertension; E66.01 Morbid (severe) obesity due to excess calories; Z79.85 Long-term (current) use of injectable non-insulin antidiabetic drugs; Z79.899 Other long term (current) drug therapy
CPT/HCPCS: 36415; 50590; 74018; 82948; 88300; J0131; J0696; J2003; J2405; J2704; J3010; J7030

== ENCOUNTER → 2025-05-19 | Day surgery (SDC) | payer MEDICARE, BC ==
[~2025-05-19] MED LIST changes: -ACETAMINOPHEN 1000 MG/100 ML 100 ML IV ONE; -EPHEDRINE SULFATE INJ 50 MG/ML VIAL ONE; +GLYCOPYRROLATE INJ 0.2 MG/ML VIAL ONE; +HYOSCYAMINE SULFATE 0.5 MG/ML INJ ONE; +LACTATED RINGER'S 1,000 ML ONE; +MIDAZOLAM HCL 2 MG/2 ML VIAL ONE; -ONDANSETRON HCL INJ 2MG/ML 2ML 2 MG/ML VIAL ONE; -PROPOFOL IV EMULSION 10 MG/ML 20 ML VIAL ONE; +PROPOFOL IV EMULSION 50 ML IV ONE; -SEVOFLURANE INHAL SOLN 250 ML PEN BTL ONE
[2025-05-19 13:51] VITALS: TEMP 97.7
[2025-05-19 14:10] VITALS: BP 146/78; PULSE 79; RESP 18; O2SAT 98
== END | disposition home or self-care (01) ==
LOC: OR 10:53
PROVIDERS: ATTEND Internal Medicine Gastroenterology
DX: Z12.11 Encounter for screening for malignant neoplasm of colon (principal); D12.2 Benign neoplasm of ascending colon; D12.4 Benign neoplasm of descending colon; K64.8 Other hemorrhoids; I10 Essential (primary) hypertension; Z71.89 Other specified counseling; E11.9 Type 2 diabetes mellitus without complications; M10.9 Gout, unspecified; Z79.85 Long-term (current) use of injectable non-insulin antidiabetic drugs; Z79.899 Other long term (current) drug therapy; Z68.27 Body mass index [BMI] 27.0-27.9, adult; Z71.3 Dietary counseling and surveillance; Z91.81 History of falling; Z80.0 Family history of malignant neoplasm of digestive organs
CPT/HCPCS: 36415; 45385; 82948; 88305; J1980; J2003; J2250; J2704; J3010; J7121; 45378

== ENCOUNTER 2025-06-12 11:10 | Inpatient (IN) | payer MEDICARE, BC ==
[2025-06-11 09:40] LABS: BASOPHILS % 1.1 % (0.0-1.0); EOSINOPHILS % 2.1 % (0.0-6.0); LYMPHOCYTES % 25.0 % (18.0-39.1); MONOCYTES % 9.9 % (4.4-11.3); NEUTROPHILS % 61.5 % (38.7-80.0); RED CELL DISTRIBUTION WIDTH 12.5 % (11.7-14.4)
[2025-06-11 10:30] LABS: EST GLOMERULAR FILTRATION RATE 70.0 ML/MIN (>=60)
[~2025-06-12] VITALS: Ht 190.5 cm; Wt 130.6 kg
[~2025-06-12 11:10] MED LIST changes: -FENTANYL CITRATE/PF 100MCG/2 ML INJ ONE; -GLYCOPYRROLATE INJ 0.2 MG/ML VIAL ONE; -HYOSCYAMINE SULFATE 0.5 MG/ML INJ ONE; -LACTATED RINGER'S 1,000 ML ONE; -LIDOCAINE HCL 2% LOCAL INJ 5 ML SDV VIAL INJ ONE; -MIDAZOLAM HCL 2 MG/2 ML VIAL ONE; -PROPOFOL IV EMULSION 50 ML IV ONE
[2025-06-12] MEDS ORDERED: LIDOCAINE HCL 2% LOCAL INJ 5 ML SDV VIAL INJ ONE (12:44)
[2025-06-12] MEDS ORDERED: PROPOFOL IV EMULSION 10 MG/ML 20 ML VIAL ONE (12:44)
[2025-06-12] MEDS ORDERED: ONDANSETRON HCL INJ 2MG/ML 2ML 2 MG/ML VIAL ONE (12:44)
[2025-06-12] MEDS: PHENAZOPYRIDINE HCL 100 MG TAB ONE (15:33)
[2025-06-12] MEDS: ACETAMINOPHEN/CODEINE 300MG - 30MG TAB ONE (15:33)
[2025-06-12] MEDS: ACETAMINOPHEN 1000 MG/100 ML 100 ML IV ONE (15:53)
[2025-06-12] MEDS: ONDANSETRON HCL INJ 2MG/ML 2ML 2 MG/ML VIAL ONE (16:37)
[2025-06-12 18:21] VITALS: BP 165/76; PULSE 56; RESP 16; TEMP 97.3; O2SAT 100
[2025-06-12] MEDS: SODIUM CHLORIDE 0.9% 1000ML 1,000 ML IV SCH (18:33)
[2025-06-12] MEDS ORDERED: DEXTROSE 50% SYRINGE 50 ML IV PRN (19:00)
[2025-06-12 20:29] VITALS: BP 165/74; PULSE 60; RESP 20; TEMP 98.6; O2SAT 99
[2025-06-12] MEDS: Morphine 2mg Syringe 2 MG/ML SYR IV PRN (20:46)
[2025-06-12] MEDS: GABAPENTIN 300 MG CAP PO SCH (20:46)
[2025-06-12] MEDS: LISINOPRIL 20 MG TAB PO SCH (20:47)
[2025-06-12] MEDS: ATENOLOL 50 MG TAB PO SCH (20:48)
[2025-06-12] MEDS: INSULIN LISPRO 100 UNIT/1 ML 3ML VIAL SQ SCH (20:54)
[2025-06-12] MEDS: SOLIFENACIN SUCCINATE 5 MG TAB PO SCH (22:33)
[2025-06-12] MEDS: KETOROLAC TROMETHAMINE 30 MG/ML VIAL IV PRN (22:35)
[2025-06-12 22:48] VITALS: BP 165/74; PULSE 61; RESP 20; TEMP 98.6; O2SAT 99
[2025-06-12 22:57] VITALS: BP 165/74; PULSE 61; RESP 20; TEMP 98.6; O2SAT 99
[2025-06-13 04:58] VITALS: BP 131/58; PULSE 65; RESP 18; TEMP 98.2; O2SAT 99
[2025-06-13 05:52] LABS: BASOPHILS % 0.6 % (0.0-1.0); EOSINOPHILS % 0.0 % (0.0-6.0); LYMPHOCYTES % 9.7 % (18.0-39.1); MONOCYTES % 8.4 % (4.4-11.3); NEUTROPHILS % 80.7 % (38.7-80.0); RED CELL DISTRIBUTION WIDTH 13.1 % (11.7-14.4)
[2025-06-13 06:11] LABS: EST GLOMERULAR FILTRATION RATE 47.0 ML/MIN (>=60)
[2025-06-13] MEDS: CEFTRIAXONE 1 GM VIAL ONE (07:48)
[2025-06-13] MEDS: SODIUM CHLORIDE 0.9% 1000ML 1,000 ML ONE (07:49)
[2025-06-13] MEDS: GENTAMICIN 80MG/NS 100 ML 200 ML IV ONE (07:49)
[2025-06-13 08:00] VITALS: BP 125/56; PULSE 73; RESP 12; TEMP 98.1; O2SAT 96
[2025-06-13 09:00] VITALS: BP 125/56; PULSE 73; RESP 12; TEMP 98.1; O2SAT 96
[2025-06-13] MEDS: HYDROCHLOROTHIAZIDE 25 MG TAB PO SCH (09:14)
[2025-06-13] MEDS: ALLOPURINOL 300 MG TAB PO SCH (09:14)
[2025-06-13] MEDS: MULTIVITAMINS/MINERALS TAB PO SCH (09:14)
[2025-06-13] MEDS: SENNOSIDES 8.6 MG TAB PO SCH (09:16)
[2025-06-13 12:00] VITALS: BP 126/54; PULSE 72; RESP 16; TEMP 99.6; O2SAT 97
[2025-06-13] MEDS: POLYETHYLENE GLYCOL 3350 17 GM PACK PO SCH (12:30)
[2025-06-13] MEDS: TAMSULOSIN HCL 0.4 MG CAP PO SCH ×2 (12:31→16:28)
[2025-06-13] MEDS: SODIUM CHLORIDE 0.9% 1000ML 1,000 ML IV SCH (12:31)
[2025-06-13 16:00] VITALS: BP 126/62; PULSE 69; RESP 18; TEMP 99.5; O2SAT 97
[2025-06-13] MEDS: SENNA-S TABLET PO SCH (17:25)
[2025-06-13 21:06] VITALS: BP 93/78; PULSE 75; RESP 19; TEMP 98.8; O2SAT 98
[2025-06-14] VITALS (8 sets, daily range): BP systolic 131–152; BP diastolic 59–70; PULSE 64–75; RESP 16–19; TEMP 97.8–99.1; O2SAT 97–99
[2025-06-14 05:35] LABS: BASOPHILS % 0.4 % (0.0-1.0); EOSINOPHILS % 0.0 % (0.0-6.0); LYMPHOCYTES % 20.8 % (18.0-39.1); MONOCYTES % 11.2 % (4.4-11.3); NEUTROPHILS % 67.3 % (38.7-80.0); RED CELL DISTRIBUTION WIDTH 12.8 % (11.7-14.4)
[2025-06-14 06:02] LABS: EST GLOMERULAR FILTRATION RATE 68.0 ML/MIN (>=60)
[2025-06-14] MEDS: PHENAZOPYRIDINE HCL 100 MG TAB PO PRN (09:18)
[2025-06-14] MEDS: BISACODYL 10 MG SUPP PR ONE (12:29)
[2025-06-14] MEDS: MAGNESIUM HYDROXIDE 30 ML UDC PO ONE (12:29)
[2025-06-15 03:46] VITALS: BP 132/67; PULSE 62; RESP 18; TEMP 98.6; O2SAT 99
[2025-06-15 05:25] LABS: EST GLOMERULAR FILTRATION RATE 84.0 ML/MIN (>=60)
[2025-06-15 07:36] VITALS: BP 135/61; PULSE 65; RESP 18; TEMP 97.4; O2SAT 100
[2025-06-15 07:45] VITALS: BP 135/61; PULSE 65; RESP 18; TEMP 97.4; O2SAT 100
[2025-06-15 09:01] VITALS: BP 135/61; PULSE 65; RESP 18; TEMP 97.4; O2SAT 100
[2025-06-15] MEDS ORDERED: PHENAZOPYRIDIN100 MG PO (09:17)
[2025-06-15] MEDS ORDERED: FLOMAX0.4 MG PO (09:17)
[2025-06-15 11:10] VITALS: BP 141/61; PULSE 63; RESP 18; TEMP 98.6; O2SAT 100
== END 2025-06-15 15:11 | disposition home or self-care (01) | DRG 661 ==
LOC: OR 11:10 → MED/SURG 17:57 → INTOOBSV 17:57 → OBSVTOIN 06-14 10:05
PROVIDERS: ADMIT Family Medicine Adult Medicine; ATTEND Family Medicine Adult Medicine
PROC: 0TC78ZZ Extirpation of Matter from Left Ureter, Via Natural or Artificial Opening Endoscopic (ICD-10-PCS; 2025-06-12)
PROC: 0TC68ZZ Extirpation of Matter from Right Ureter, Via Natural or Artificial Opening Endoscopic (ICD-10-PCS; 2025-06-12)
PROC: 0TP98DZ Removal of Intraluminal Device from Ureter, Via Natural or Artificial Opening Endoscopic (ICD-10-PCS; 2025-06-12)
PROC: 0TC08ZZ Extirpation of Matter from Right Kidney, Via Natural or Artificial Opening Endoscopic (ICD-10-PCS; 2025-06-12)
PROC: 0TC18ZZ Extirpation of Matter from Left Kidney, Via Natural or Artificial Opening Endoscopic (ICD-10-PCS; 2025-06-12)
PROC: BT141ZZ Fluoroscopy of Kidneys, Ureters and Bladder using Low Osmolar Contrast (ICD-10-PCS; 2025-06-12)
PROC: 0T788DZ Dilation of Bilateral Ureters with Intraluminal Device, Via Natural or Artificial Opening Endoscopic (ICD-10-PCS; principal; 2025-06-12 12:43)
DX: N13.2 Hydronephrosis with renal and ureteral calculous obstruction (principal); N17.9 Acute kidney failure, unspecified; I10 Essential (primary) hypertension; E11.65 Type 2 diabetes mellitus with hyperglycemia; E11.42 Type 2 diabetes mellitus with diabetic polyneuropathy; G89.18 Other acute postprocedural pain; R33.8 Other retention of urine; Z96.0 Presence of urogenital implants; N21.0 Calculus in bladder; N40.1 Benign prostatic hyperplasia with lower urinary tract symptoms; E66.9 Obesity, unspecified; R31.9 Hematuria, unspecified; K59.00 Constipation, unspecified; Z87.442 Personal history of urinary calculi; Z68.36 Body mass index [BMI] 36.0-36.9, adult
CPT/HCPCS: 36415; 74018; 74420; 80048; 80053; 82948; 84550; 85025; 87086; 88300; 93005; C1758; C1769; C2617; G0378; J0696; J1580; J1885; J2003; J2270; J2405; J7030